=== PATIENT | male | born 1945 | race Caucasian/White ===

== ENCOUNTER 2016-11-20 11:23 | Outpatient (CLI) | payer MEDICARE, OTHER ==
[2015-08-01 12:28] VITALS: BP 117/77
== END 2016-11-20 11:24 ==
LOC: CARD 11:23
PROVIDERS: ATTEND Internal Medicine Cardiovascular Disease
DX: I25.10 Atherosclerotic heart disease of native coronary artery without angina pectoris (principal)
CPT/HCPCS: G0463

== ENCOUNTER 2017-03-04 15:12 | Outpatient (CLI) | payer MEDICARE, OTHER ==
[2015-08-01 12:28] VITALS: BP 117/77
[2017-03-04 15:56] LABS: BASOPHILS % 0.5 (0.0-1.5); EOSINOPHILS % 1.4 % (0.0-6.8); MEAN CORPUSCULAR HEMOGLOBIN 32.2 pg (28.0-34.0); MEAN CORPUSCULAR VOLUME 92.7 fl (80.0-100.0); MONOCYTES % 6.7 % (0.0-11.0); NEUTROPHILS # 3.8 # k/uL (1.4-7.7)
[2017-03-04 16:28] LABS: eGFR (African) > 60; eGFR (Non-African) > 60
--- NOTE | 2017-03-04 18:05 | Diagnostic Imaging Report ---
[facility] [address] [facility] [address] [place], [place]. [address] Report Submission Date: March 04, 2017 5:42:37 PM CDT Patient Study Name: LUIS FELIPE CASTAÑEDA Date: March 04, 2017 3:49:02 PM CDT Modality Type: CR Gender: M Description: CHEST : 43 Institution: [facility] Physician: MILI JOAQUIM - OP Chest, 2 view History: COUGH, DYSPNEA ON EXERTION. HX OF 4 BI-PASS SURGERIES Findings: The heart size is normal. Wire sternal sutures are in place. There is atherosclerosis of the aorta. The lungs are clear. There is no pleural effusion or pneumothorax identified. The osseous structures are normal. Impression: 1. No acute pulmonary disease. 2. Atherosclerosis. Electronically signed on March 04, 2017 5:42:37 PM CDT by: Aquiles KAM
== END 2017-03-04 15:13 ==
LOC: LAB 15:12
PROVIDERS: ATTEND Family Medicine
DX: R05 Cough (principal); R06.09 Other forms of dyspnea; N18.9 Chronic kidney disease, unspecified; D64.9 Anemia, unspecified; R63.5 Abnormal weight gain
CPT/HCPCS: 36415; 71020; 80053; 84443; 85025

== ENCOUNTER 2017-07-17 11:40 | Outpatient (CLI) | payer MEDICARE, OTHER ==
[2015-08-01 12:28] VITALS: BP 117/77
--- NOTE | 2017-07-17 13:43 | Diagnostic Imaging Report ---
JOAQUIM GARCES [facility] [address] [facility].[address] [address] Report Submission Date: Jul 17, 2017 12:16:35 PM CDT Patient Study Name: LUIS FELIPE CASTAÑEDA Date: Jul 17, 2017 11:42:56 AM CDT Modality Type: CR Gender: M Description: SPINE : 43 Institution: [facility] Physician: JOAQUIM GARCES Examination: Plain film lumbar spine History: Radiculopathy. Findings: 3 views of the lumbar spine demonstrate normal height. No anterior compression. Osteophyte formation and L5/S1 disc space narrowing. Dissect degenerative changes. Atherosclerotic disease involving the abdominal aorta. Impression: Degenerative changes. No compression deformity. If patient is experiencing neurologic symptoms, consider obtaining MRI. Electronically signed on Jul 17, 2017 12:16:35 PM CDT by: Yossi KAM
== END 2017-07-17 11:42 ==
LOC: RAD 11:40
PROVIDERS: ATTEND Family Medicine
DX: M54.32 Sciatica, left side (principal)
CPT/HCPCS: 72100

== ENCOUNTER 2017-11-18 07:23 | Outpatient (CLI) | payer MEDICARE, OTHER ==
[2015-08-01 12:28] VITALS: BP 117/77
== END 2017-11-18 07:24 ==
LOC: LAB 07:23
PROVIDERS: ATTEND Family Medicine
DX: E78.5 Hyperlipidemia, unspecified (principal); E03.9 Hypothyroidism, unspecified
CPT/HCPCS: 36415; 80061; 84443

== ENCOUNTER 2017-12-03 11:02 | Outpatient (CLI) | payer MEDICARE, OTHER ==
[2015-08-01 12:28] VITALS: BP 117/77
== END 2017-12-03 11:03 ==
LOC: CARD 11:02
PROVIDERS: ATTEND Internal Medicine Cardiovascular Disease
DX: I25.10 Atherosclerotic heart disease of native coronary artery without angina pectoris (principal); E78.5 Hyperlipidemia, unspecified; I10 Essential (primary) hypertension; Z86.79 Personal history of other diseases of the circulatory system
CPT/HCPCS: G0463

== ENCOUNTER 2018-02-14 09:18 | Outpatient (CLI) | payer MEDICARE, OTHER ==
[2015-08-01 12:28] VITALS: BP 117/77
== END 2018-02-14 09:20 ==
LOC: LAB 09:18
PROVIDERS: ATTEND Family Medicine
DX: E03.9 Hypothyroidism, unspecified (principal); N40.1 Benign prostatic hyperplasia with lower urinary tract symptoms
CPT/HCPCS: 36415; 84153; 84443

== ENCOUNTER 2018-07-22 07:41 | Emergency (ER) | payer MEDICARE, OTHER ==
[2018-07-22 08:01] VITALS: BP 110/69
--- NOTE | 2018-07-22 08:04 | ED Physician Documentation ---
Abscess - HPI Stated Complaint: BUG BITE Chief Complaint: Abscess Additional Information: Patient presents to the ED with a painful bug bite to the back of his neck since Saturday. He states it has become painful. He denies fever or chills. He has not treated the area in anyway. Onset: days ago Timing: still present Duration: persistent since Location: neck Identified Cause?: No Where: home Context: Medication Exposure: none Context: Food Exposure: none Context: Other Exposure: denies: bee sting, wasp sting, ant bite, spider bite, poison aguilar, poison oak, infectious illness, soap, detergent, other Further Comments: no - ROS CONST: none CVS/RESP: none EYES/ENT: none GI/: none MS/SKIN/LYMPH: none NEURO/PSYCH: none - PAST HX Past History: none Other History: none Surgeries/Procedures: No Allergies/Adverse Reactions: Allergies Allergy/AdvReac Type Severity Reaction Status Date / Time No Known Allergies Allergy Unverified 03/09/14 07:55 Home Medications: Ambulatory Orders Medication Instructions Recorded Acetaminophen [Tylenol Extra 500 mg PO PRN u2 03/09/14 Strength] Aspirin [Aspir 81] 81 mg PO DAILY u2 03/09/14 Loratadine 10 mg PO DAILY u2 03/09/14 Mv-Mins/Folic/Lycopene/Ginkgo 1 each PO DAILY u2 03/09/14 [Men's 50+ Daily Formula Tablet] Atorvastatin Calcium 40 mg PO DAILY #30 u2 09/14/15 Cephalexin [Keflex] 500 mg PO Q8 7 Days capsule 07/22/18 - SOCIAL HX Smoking History: non-smoker Alcohol Use: none Drug Use: none - FAMILY HX Family History: none - VITAL SIGNS Vital Signs: Vital Signs Temp Pulse Resp BP Pulse Ox 97.6 F 57 L 20 110/69 99 07/22/18 08:06 07/22/18 08:06 07/22/18 08:06 07/22/18 08:06 07/22/18 08:06 - REVIEWED ASSESSMENTS Nursing Assessment Reviewed: Yes Vitals Reviewed: Yes Abscess Physical Exam - EXAM General Appearance: no acute distress Skin: warm,dry Location: generalized, posterior neck Character: symmetric Symptoms: warmth, tenderness, swelling, other (indurated, central pustule) Extremities: non-tender, no edema EENT: eyes nml inspection Respiratory: no resp distress CVS: reg. rate & rhythm Abdomen: non-tender, nml bowel sounds Neuro/Psych: oriented x3 Discharge Clincal Impression: Folliculitis Prescriptions: Cephalexin [Keflex] 500 mg PO Q8 7 Days capsule Referrals: Gael Martin MD [Primary Care Provider] - 2 Days Additional Instructions: Take all antibiotics as directed. Wash area with antibacterial soap twice daily Condition: Good Disposition: 01 HOME, SELF-CARE Decision to Admit: NO Date of Decison to Admit: 07/22/18 Decision Time: 08:09
== END 2018-07-22 08:21 | disposition home or self-care (01) ==
LOC: ED 07:41
DX: L73.9 Follicular disorder, unspecified (principal)
CPT/HCPCS: 99283

== ENCOUNTER 2019-07-03 07:10 | Outpatient (CLI) | payer MEDICARE, OTHER ==
[2019-07-03 09:04] LABS: HDL 38 mg/dL (>40); eGFR (Non-African) > 60
== END 2019-07-03 07:13 ==
LOC: LAB 07:10
PROVIDERS: ATTEND Family Medicine
DX: E78.5 Hyperlipidemia, unspecified (principal); I49.9 Cardiac arrhythmia, unspecified
CPT/HCPCS: 36415; 80053; 80061; 84443

== ENCOUNTER 2019-08-14 15:59 | Outpatient (CLI) | payer MEDICARE, OTHER ==
--- NOTE | 2019-08-14 22:27 | Diagnostic Imaging Report ---
PATIENT MR#: [id number] PATIENT PATIENT NAME: LUIS FELIPE CASTAÑEDA DATE OF : 1945 REFERRING PHYSICIAN: Gael Martin EXAM DATE: 08/14/2019 ACCESSION NUMBER: [id number] EXAM DESCRIPTION: CHEST 2VIEW HISTORY: CHEST CONGESTION/COUGH X2 MONTHS, DRY COUGH, WORSE AT NIGHT. COMPARISON: None provided. CHEST RADIOGRAPH, FRONTAL AND LATERAL: Upper mediastinum: Not widened. Heart: No cardiomegaly. CABG clips. Lungs: Bilateral atelectasis at the costophrenic bases. Probable 2.5 mm granuloma in the right midlun g. No lobar infiltrate, pulmonary edema, pneumothorax or significant effusion. Skeleton: Left shoulder arthroplasty. Median sternotomy. IMPRESSION: No acute thoracic process. Chronic findings as described above. Read by: Dr. Roly Portillo Transcribed by: Roly Portillo Transcribed Date: 08/14/2019 10:24:41 PM Electronically signed by: Dr. Roly Portillo Date signed: 08/14/2019 10:25:30 PM
--- NOTE | 2019-08-14 22:31 | Diagnostic Imaging Report ---
PATIENT MR#: [id number] PATIENT PATIENT NAME: LUIS FELIPE CASTAÑEDA DATE OF : 1945 REFERRING PHYSICIAN: Gael Martin EXAM DATE: 08/14/2019 ACCESSION NUMBER: [id number] EXAM DESCRIPTION: SINUS 3 VIEWS OR MORE CLINICAL HISTORY: SINUS CONGESTION/ COUGH X2 MONTHS. COMPARISON: No pertinent prior studies are available at this time. SINUS XRAYS, 3 VIEWS: Maxilla: Intact. Mandible: Intact. Paranasal sinuses: Clear, without fluid levels. Orbits: Intact. Calvarium: Intact. IMPRESSION: Normal paranasal sinuses. Read by: Dr. Roly Portillo Transcribed by: Roly Portillo Transcribed Date: 08/14/2019 10:29:59 PM Electronically signed by: Dr. Roly Portillo Date signed: 08/14/2019 10:29:59 PM
== END 2019-08-14 16:09 ==
LOC: RAD 15:59
PROVIDERS: ATTEND Family Medicine
DX: J32.1 Chronic frontal sinusitis (principal); R05 Cough
CPT/HCPCS: 70220; 71046